=== PATIENT | male | born 1960 | race Two or more races ===

== ENCOUNTER 2017-07-14 10:02 | Emergency (ER) | payer MEDICAID ==
[2017-07-14 10:11] VITALS: BMI 35.4
[2017-07-14 10:14] VITALS: TEMP 98.3
[2017-07-14] MEDS ORDERED: Pantoprazole 40 MG in Sodium Chloride 0.9% 100 ML IV STA (10:38)
[2017-07-14] MEDS ORDERED: Sodium Chloride 0.9% 500 ML IV STA (10:39)
--- NOTE | 2017-07-14 10:42 | ED PDOC ---
Arrival/HPI - General Chief Complaint: Abdominal Pain Time Seen by Provider: 07/14/17 10:36 Historian: Patient - History of Present Illness Narrative History of Present Illness (Text): 07/14/17 10:39 Marek Correa is a 57 year old male, whose past medical history includes diabetes and hypertension, who presents to the emergency department complaining of abdominal pain and vomiting since last night. Patient notes the pain as a burning and cramping sensation. Patient denies any fever, chills, chest pain, shortness of breath, nausea, diarrhea, back pain, neck pain, headache, dizziness , or any other complaints. Symptom Onset: Gradual Symptom Course: Unchanged Activities at Onset: Light Context: Home Past Medical History - Provider Review Nursing Documentation Reviewed: Yes - Cardiac Hx Hypertension: Yes - Pulmonary Hx Respiratory Disorders: No - Neurological Hx Neurological Disorder: No - HEENT Hx HEENT Disorder: No - Renal Hx Renal Disorder: No - Endocrine/Metabolic Hx Diabetes Mellitus Type 2: Yes - Hematological/Oncological Hx Blood Disorders: No - Integumentary Hx Dermatological Disorder: No - Musculoskeletal/Rheumatological Hx Musculoskeletal Disorders: No - Gastrointestinal Hx Gastrointestinal Disorders: No - Genitourinary/Gynecological Hx Genitourinary Disorders: No - Psychiatric Hx Psychophysiologic Disorder: No Hx Substance Use: No Family/Social History - Physician Review Nursing Documentation Reviewed: Yes Family/Social History: Unknown Family HX Smoking Status: Never Smoked Hx Alcohol Use: No Hx Substance Use: No Allergies/Home Meds Allergies/Adverse Reactions: Allergies No Known Allergies Allergy (Verified 07/14/17 10:10) Home Medications: Home Meds Medication Instructions Recorded Confirmed Gabapentin [Neurontin] 300 mg PO DAILY 07/14/17 07/14/17 Lisinopril [Zestril] 0 mg PO DAILY 07/14/17 07/14/17 MetFORMIN [glucOPHAGE] 500 mg PO DAILY 07/14/17 07/14/17 Review of Systems - Physician Review All systems were reviewed & negative as marked: Yes - Review of Systems Constitutional: Normal Eyes: Normal ENT: Normal Respiratory: Normal. absent: SOB, Cough Cardiovascular: Normal. absent: Chest Pain, Palpitations Gastrointestinal: Abdominal Pain, Vomiting. absent: Diarrhea, Nausea Genitourinary Male: Normal. absent: Dysuria, Frequency, Hematuria, Urinary Output Changes Musculoskeletal: Normal. absent: Back Pain, Neck Pain Skin: Normal. absent: Rash Neurological: Normal Endocrine: Normal Hemo/Lymphatic: Normal Psychiatric: Normal Physical Exam Vital Signs Reviewed: Yes Vital Signs Temp Pulse Resp BP Pulse Ox 07/14/17 12:10 81 18 150/71 100 07/14/17 10:13 98.3 F 76 19 152/83 H 98 Temperature: Afebrile Blood Pressure: Normal Pulse: Regular Respiratory Rate: Normal Appearance: Positive for: Well-Appearing, Non-Toxic, Comfortable Pain Distress: None Mental Status: Positive for: Alert and Oriented X 3 - Systems Exam Head: Present: Atraumatic, Normocephalic Pupils: Present: PERRL Extroacular Muscles: Present: EOMI Conjunctiva: Present: Normal Mouth: Present: Moist Mucous Membranes Neck: Present: Normal Range of Motion Respiratory/Chest: Present: Clear to Auscultation, Good Air Exchange. No: Respiratory Distress, Accessory Muscle Use Cardiovascular: Present: Regular Rate and Rhythm, Normal S1, S2. No: Murmurs Abdomen: Present: Tenderness (Epigastric tenderness), Normal Bowel Sounds. No: Distention, Peritoneal Signs Back: Present: Normal Inspection Upper Extremity: Present: Normal Inspection. No: Cyanosis, Edema Lower Extremity: Present: Normal Inspection. No: Edema Neurological: Present: GCS=15, CN II-XII Intact, Speech Normal Skin: Present: Warm, Dry, Normal Color. No: Rashes Psychiatric: Present: Alert, Oriented x 3, Normal Insight, Normal Concentration Medical Decision Making ED Course and Treatment: 07/14/17 10:44 Impression: 57 year old male presents to the emergency department with abdominal pain and vomiting since last night. Plan: -- EKG -- US gallbladder -- Labs, Lipase, Amylase -- Zofran -- Protonix -- Sodium Chloride -- Urinalysis -- Reassess and disposition Progress Notes: 07/14/17 10:47 EKG reviewed, NSR at [address]/T wave changes. 07/14/17 12:00 US gallbladder reviewed, shows: LIVER: Measures 22.0 cm in length. There is diffuse increased echogenicity of the liver parenchyma. No mass. No intrahepatic bile duct dilatation. GALLBLADDER: There are multiple gallstones and mild gallbladder wall thickening without pericholecystic fluid. The sonographic Crocker's sign is negative. COMMON BILE DUCT: Measures 6.2 mm. No stones. No dilatation. PANCREAS: Unremarkable as visualized. No mass. No ductal dilatation. RIGHT KIDNEY: Measures 11.1 cm in length. Normal echogenicity. No calculus, mass, or hydronephrosis. AORTA: No aneurysmal dilatation. IVC: Unremarkable. OTHER FINDINGS: None . IMPRESSION: Moderate hepatomegaly. Diffuse increased echogenicity in the liver may reflect hepatic steatosis however parenchymal infectious/ inflammatory etiologies cannot be entirely excluded. Clinical and laboratory correlation is advised. Cholelithiasis and mild gallbladder wall thickening. 07/14/17 12:02 The patient declines to have further medical evaluation and treatment and wishes to leave the Emergency Department. This action is against my medical advice to the patient, and with informed refusal. The patient was told that evaluation and treatment are necessary and a full explanation of the rationale was given. The risks of leaving were explained to the patient and include, but are not limited to, worsening of known or currently unknown conditions, permanent disability and from undiagnosed or untreated conditions The patient has the capacity to make this informed decision and understands the clinical situation and my explanation of the risks of leaving. The patient voluntarily accepts these risks, and a signed AMA form documenting our conversation was obtained. The patient was given the opportunity to ask questions and reconsider. The patient was encouraged to return to the Emergency Department at any time for further care. 07/14/17 14:06 pt with us that shows thickened gallbladder wall, possible cholecysisit. requested pt be admitted for surgical eval possible hida. pt refuses. states he needs to get home to family. advised of risks. . - Lab Interpretations Lab Results: 07/14/17 10:20 07/14/17 10:20 Lab Results 07/14/17 10:20: Sodium 139, Potassium 3.8, Chloride 100, Carbon Dioxide 23, Anion Gap 20, BUN 13, Creatinine 0.9, Est GFR ( Amer) > 60, Est GFR (Non- Af Amer) > 60, Random Glucose 158 H, Calcium 9.6, Total Bilirubin 0.6, AST 44, ALT 65 H, Alkaline Phosphatase 75, Lactate Dehydrogenase 508, Total Creatine Kinase 244 H, CK-MB (CK-2) 1.2, CK-MB (CK-2) % Cancelled, Troponin I < 0.02, Total Protein 8.3, Albumin 4.7, Globulin 3.5, Albumin/Globulin Ratio 1.3, Amylase 93, Lipase 102 07/14/17 10:20: Urine Color Yellow, Urine Appearance Clear, Urine pH 6.5, Ur Specific [place] 1.025, Urine Protein 30 H, Urine Glucose (UA) Negative, Urine Ketones Negative, Urine Blood Trace-intact H, Urine Nitrate Negative, Urine Bilirubin Negative, Urine Urobilinogen 0.2, Ur Leukocyte Esterase Negative, Urine RBC 0 - 2, Urine WBC 0 - 2, Ur Epithelial Cells 0 - 2, Urine Bacteria Few 07/14/17 10:20: PT 10.8, INR 0.94, APTT 28.6 07/14/17 10:20: WBC 8.2, RBC 5.68, Hgb 15.8, Hct 46.3, MCV 81.5, MCH 27.8, MCHC 34.1, RDW 14.4, Plt Count 236, MPV 10.7, Gran % 81.2 H, Lymph % (Auto) 14.9 L, Emmons % (Auto) 3.8, Eos % (Auto) 0.0 L, Baso % (Auto) 0.1, Gran # 6.68 H, Lymph # (Auto) 1.2, Emmons # (Auto) 0.3, Eos # (Auto) 0.0, Baso # (Auto) 0.01 - RAD Interpretation Radiology Orders: 07/14/17 11:14 GALLBLADDER & COMMON DUCT [US] Stat - Medication Orders Current Medication Orders: Discontinued Medications Ciprofloxacin (Cipro) 500 mg PO ONCE STA PRN Reason: Protocol Stop: 07/14/17 11:59 Last Admin: 07/14/17 12:15 Dose: 500 mg Sodium Chloride (Sodium Chloride 0.9%) 500 mls @ 999 mls/hr IV .Q31M STA Stop: 07/14/17 11:09 Last Admin: 07/14/17 10:41 Dose: 999 mls/hr Comments: wont scan eMAR Start Stop Document 07/14/17 10:41 SE (Rec: 07/14/17 10:41 SE [id number]) Intravenous Solution Start Date 07/14/17 Start Time 10:41 Metronidazole (Flagyl) 500 mg PO STAT STA PRN Reason: Protocol Stop: 07/14/17 11:59 Last Admin: 07/14/17 12:15 Dose: 500 mg Ondansetron HCl (Zofran Inj) 4 mg IVP STAT STA Stop: 07/14/17 10:39 Last Admin: 07/14/17 10:44 Dose: 4 mg IVP Administration Document 07/14/17 10:44 SE (Rec: 07/14/17 10:44 SE [id number]) Charges for Administration # of IVP Administrations 1 Pantoprazole Sodium (Protonix Inj) 40 mg IVP STAT STA Stop: 07/14/17 10:41 Last Admin: 07/14/17 10:44 Dose: 40 mg IVP Administration Document 07/14/17 10:44 SE (Rec: 07/14/17 10:44 SE [id number]) Charges for Administration # of IVP Administrations 1 - Scribe Statement The provider has reviewed the documentation as recorded by the Scribe Vivien Ventura All medical record entries made by the Scribe were at my direction and personally dictated by me. I have reviewed the chart and agree that the record accurately reflects my personal performance of the history, physical exam, medical decision making, and the department course for this patient. I have also personally directed, reviewed, and agree with the discharge instructions and disposition. Disposition/Present on Arrival - Present on Arrival Any Indicators Present on Arrival: No History of DVT/PE: No History of Uncontrolled Diabetes: No Urinary Catheter: No History of Decub. Ulcer: No History Surgical Site Infection Following: None - Disposition Have Diagnosis and Disposition been Completed?: Yes Diagnosis: Gallstones, Thickening of wall of gallbladder Disposition: AGAINST MEDICAL ADVICE Disposition Time: 11:56 Condition: UNKNOWN Discharge Instructions (ExitCare): Gallstones (DC), Leaving Against Medical Advice Additional Instructions: please follow up with surgeon. return to er with worsening symptoms or concerns. Prescriptions: Ciprofloxacin [Cipro] 500 mg PO BID #14 tab metroNIDAZOLE [Flagyl] 500 mg PO TID #21 tab Referrals: Mar Coppola MD [Primary Care Provider] - Follow up with primary Wale Dickson MD [Staff Provider] - Follow up with primary Forms: [employer] ([employer])
[2017-07-14 10:55] LABS: BASO # 0.01 K/mm3 (0.0-2.0); BASO % 0.1 % (0.0-3.0); GRAN # 6.68 (1.4-6.5); GRAN % 81.2 % (50.0-68.0); HEMOGLOBIN 15.8 g/dL (14.0-18.0); LYMPH # 1.2 (1.2-3.4); LYMPH % 14.9 % (22.0-35.0); MEAN CELL VOLUME 81.5 fl (80.0-105.0); MEAN CORPUSCULAR HEMOGLOBIN 27.8 pg (25.0-35.0); MEAN CORPUSCULAR HGB CONC 34.1 g/dl (31.0-37.0); MEAN PLATELET VOLUME 10.7 fl (7.0-11.0); MONO # 0.3 (0.1-0.6); MONO % 3.8 % (1.0-6.0); RBC 5.68 10^6/uL (3.5-6.1); RED CELL DISTRIBUTION WIDTH 14.4 % (11.5-14.5); WHITE BLOOD COUNT 8.2 10^3/ul (4.5-11.0)
[2017-07-14 10:56] LABS: PH,URINE 6.5 (4.7-8.0); URINE APPEARANCE CLEAR (CLEAR); URINE BILIRUBIN NEGATIVE (NEGATIVE); URINE BLOOD TRACE-INTACT (NEGATIVE); URINE COLOR YELLOW (YELLOW); URINE GLUCOSE (UA) NEGATIVE (NEGATIVE); URINE LEUKOCYTE ESTERASE NEGATIVE Leu/uL (NEGATIVE); URINE NITRATE NEGATIVE (NEGATIVE); URINE PROTEIN 30 mg/dL (<30 mg/dL); URINE UROBILINOGEN 0.2 E.U./dL (<1 E.U./dL)
[2017-07-14 11:05] LABS: INR 0.94 (0.93-1.08); PARTIAL THROMBOPLASTIN TIME 28.6 Seconds (25.1-36.5); PROTHROMBIN TIME 10.8 SECONDS (9.4-12.5)
[2017-07-14 11:09] LABS: URINE BACTERIA FEW (NEG); URINE EPITHELIAL CELLS 0 - 2 /hpf (0-5); URINE RBC 0 - 2 /hpf (0-2); URINE WBC 0 - 2 /hpf (0-6)
[2017-07-14 11:15] LABS: ALB/GLOB RATIO 1.3 (1.1-1.8); ALBUMIN 4.7 g/dL (3.0-4.8); ALT/SGPT 65 U/L (7-56); AMYLASE 93 U/L (35-125); AST/SGOT 44 U/L (17-59); BLOOD UREA NITROGEN 13 mg/dL (7-21); CALCIUM 9.6 mg/dL (8.4-10.5); GFR AFRICAN-AMERICAN > 60; GFR NON-AFRICAN AMERICAN > 60; LIPASE 102 U/L (23-300)
--- NOTE | 2017-07-14 11:44 | US ---
HISTORY: Upper abdominal pain COMPARISON: None. TECHNIQUE: Grayscale imaging was performed. FINDINGS: LIVER: Measures 22.0 cm in length. There is diffuse increased echogenicity of the liver parenchyma. No mass. No intrahepatic bile duct dilatation. GALLBLADDER: There are multiple gallstones and mild gallbladder wall thickening without pericholecystic fluid. The sonographic Crocker's sign is negative. COMMON BILE DUCT: Measures 6.2 mm. No stones. No dilatation. PANCREAS: Unremarkable as visualized. No mass. No ductal dilatation. RIGHT KIDNEY: Measures 11.1 cm in length. Normal echogenicity. No calculus, mass, or hydronephrosis. AORTA: No aneurysmal dilatation. IVC: Unremarkable. OTHER FINDINGS: None . IMPRESSION: Moderate hepatomegaly. Diffuse increased echogenicity in the liver may reflect hepatic steatosis however parenchymal infectious/ inflammatory etiologies cannot be entirely excluded. Clinical and laboratory correlation is advised. Cholelithiasis and mild gallbladder wall thickening.
[2017-07-14 12:10] VITALS: BP 150/71; PULSE 81; RESP 18; O2SAT 100
[2017-07-14 12:15] LABS: CK-MB 1.2 ng/mL (0.0-3.6)
[2017-07-14 12:16] LABS: TROPONIN I < 0.02 ng/mL
--- NOTE | 2017-07-14 19:01 | CARD ---
APPROVED REPORT EKG Measurement Heart [id number] <Conclusion> Normal sinus rhythm Normal ECG
== END 2017-07-14 12:10 | disposition left against medical advice (07) ==
LOC: MERGE 10:02 → ED 10:02
DX: K80.80 Other cholelithiasis without obstruction (principal); K82.9 Disease of gallbladder, unspecified; I10 Essential (primary) hypertension; E11.9 Type 2 diabetes mellitus without complications
CPT/HCPCS: 76705; 80053; 81001; 82150; 82550; 82553; 83615; 83690; 84484; 85025; 85610; 85730; 93005; 96374; 96375; 99285; C9113; J2405; J7040